=== PATIENT | female | born 1970 | race Hispanic/Latino ===

== ENCOUNTER 2018-03-17 19:33 | Emergency (ER) | payer OTHER ==
[2018-03-17 19:54] VITALS: BP 145/94; PULSE 99; TEMP 98.9; O2SAT 100
[2018-03-17] MEDS ORDERED: Naproxen 550 mg Tab PO STA (20:11)
--- NOTE | 2018-03-17 20:19 | C.PDOC ---
History Of Present Illness 47 yo female c/o b/l foot pain for two weeks. Pt states she wore new shoes two weeks ago and was on her feet a lot that day at work. At the end of the day, her feet were hurting her. She stopped wearing the shoes but her feet continue to hurt prompting ED visit. She took Gabapentin for the pain, notes she takes it for her carpal tunnel. COntinues to ambulate and go to work for the last two weeks. DEnies fever, trauma, change in sensation, or back pain. Time Seen by Provider: 03/17/18 19:45 Chief Complaint (Nursing): Lower Extremity Problem/Injury History Per: Patient History/Exam Limitations: no limitations Onset/Duration Of Symptoms: Days Current Symptoms Are (Timing): Still Present Past Medical History Vital Signs: Last Vital Signs Temp 98.9 F 03/17/18 19:48 Pulse 99 H 03/17/18 19:48 Resp 18 03/17/18 19:48 BP 145/94 H 03/17/18 19:48 Pulse Ox 100 03/17/18 20:27 - Medical History PMH: Pulmonary Embolism, Sleep Apnea Surgical History: Cholecystectomy, Tonsillectomy (many years ago) - [facility] Procedures PLICATION OF VENA CAVA (04/14/15) Family History: States: Unknown Family Hx - Social History Hx Tobacco Use: No Hx Alcohol Use: No Hx Substance Use: No - Immunization History Hx Tetanus Toxoid Vaccination: No Hx Influenza Vaccination: Yes Hx Pneumococcal Vaccination: No Review Of Systems Except As Marked, All Systems Reviewed And Found Negative. Musculoskeletal: Positive for: Foot Pain (R> L) Physical Exam - Physical Exam Appears: Well, Non-toxic, No Acute Distress Skin: Normal Color, Warm, Dry Head: Atraumatic, Normacephalic Eye(s): bilateral: Normal Inspection, EOMI Nose: Normal Oral Mucosa: Moist Neck: Normal, Normal ROM, Supple Chest: Symmetrical Respiratory: No Accessory Muscle Use Back: Normal Inspection Extremity: Normal ROM, Tenderness (diffuse), No Pedal Edema, No Calf Tenderness , Capillary Refill (<2 sec), No Swelling Extremity: Bilateral: Atraumatic, Normal Color And Temperature, Normal ROM Pulses: Left Dorsalis Pedis: Normal, Right Dorsalis Pedis: Normal Neurological/Psych: Oriented x3, Normal Speech, Normal Motor, Normal Sensation Gait: Steady ED Course And Treatment O2 Sat by Pulse Oximetry: 100 - Other Rad b/l foot XR X-Ray: Interpreted by Me, Viewed By Me Interpretation: no fx or dislocation, some osteophytes Progress Note: PT requests XR, discussed the risks and benefits of XR. Naproxen ordered. Po wrap applied. Discussed change in shoes and addition of support. RICE and follow up with joint sealer in 1-2 days. Disposition - Disposition Referrals: Alcides Juares MD [Staff Provider] - Ra Smith MD [Staff Provider] - Disposition: HOME/ ROUTINE Disposition Time: 20:26 Condition: STABLE Additional Instructions: Rest, ice and elevate the area. Follow up with your doctor in 1-2 days. Return to ER if symptoms persist or worsen. Prescriptions: Naproxen [Naprosyn] 1 tab PO BID PRN #20 tab PRN Reason: Pain Instructions: Foot Sprain (DC) Forms: [facility] (I[place]ian) - Clinical Impression Clinical Impression: Pain in both feet
[2018-03-17] MEDS ORDERED: Naproxen 550 mg Tab PO ONE (20:21)
[2018-03-17 20:56] VITALS: RESP 16
--- NOTE | 2018-03-18 08:59 | RAD ---
PROCEDURE: Bilateral Feet Radiographs. HISTORY: pain COMPARISON: None. FINDINGS: BONES: No acute fracture or destructive bony lesion identified bilaterally. JOINTS: No subluxation or dislocation is appreciated at the left or right foot joints although mild degenerative changes are appreciate the interphalangeal joints diffusely and moderate degenerative changes seen in the 1st metatarsal phalangeal joints bilaterally. SOFT TISSUES: Right Foot: Normal. Left Foot: Normal. OTHER FINDINGS: None. IMPRESSION: Degenerative joint changes seen the forefeet as discussed above primarily at the 1st metatarsophalangeal joints symmetrically. No acute fracture, subluxation or dislocation appreciable. Abort
== END 2018-03-17 20:55 | disposition home or self-care (01) ==
LOC: C.ER 19:33
DX: M79.672 Pain in left foot (principal); M79.671 Pain in right foot